=== PATIENT | male | born 1945 | race Caucasian/White ===

== ENCOUNTER 2020-01-16 13:37 | Emergency (ER) | payer OTHER, MEDICAID ==
[~2020-01-16] VITALS: Ht 172.7 cm; Wt 83.0 kg
[2020-01-16 13:48] VITALS: Ht 172.7 cm; Wt 83.0 kg
[2020-01-16 17:08] VITALS: BP 142/89
== END 2020-01-16 17:08 | disposition home or self-care (01) ==
LOC: ED 13:37
DX: M54.5 Low back pain (principal); E11.9 Type 2 diabetes mellitus without complications; R20.2 Paresthesia of skin